=== PATIENT | male | born 1965 | race Caucasian/White ===

== ENCOUNTER 2021-07-14 10:14 | Emergency (ER) | payer SELFPAY ==
[2021-07-14] MEDS ORDERED: Boostrix 0.5 ML (Tdap) VIAL ONE (10:37)
[2021-07-14] MEDS ORDERED: Xylocaine 1% w/ Epi 1:100K 10 ML VIAL ONE (10:37)
[2021-07-14] MEDS ORDERED: Bacitracin 1 PK ONE (11:55)
== END 2021-07-14 11:50 | disposition home or self-care (01) ==
LOC: ERS 10:14
DX: S51.812A Laceration without foreign body of left forearm, initial encounter (principal); S21.112A Laceration without foreign body of left front wall of thorax without penetration into thoracic cavity, initial encounter; W31.89XA Contact with other specified machinery, initial encounter; Z23 Encounter for immunization; Z87.19 Personal history of other diseases of the digestive system
CPT/HCPCS: 12004; 90471; 90715